=== PATIENT | male | born 2005 | race Caucasian/White ===

== ENCOUNTER 2025-02-16 07:47 | Emergency (ER) | payer SELFPAY ==
[2025-02-16 07:58] VITALS: BP 121/84
[2025-02-16 08:05] VITALS: BP 135/85
--- NOTE | 2025-02-16 08:13 | ED.GENMED ---
History of Present Illness
General
Chief Complaint: Cough
Source: patient
Exam Limitations: none
Time Seen by Provider: 02/16/25 08:01
Nursing documentation reviewed up to this point in time: agreed with
History of Present Illness
History of Present Illness:
pt is a 19 y/o M
no sig pmh
vapes nicotine
7 days URI
started with sore throat, nasal congestion, then dry cough; now occasionally brings up mucus
using tylenol cold and flu and topical spray for throat but doesn't feel like he is getting better
was 'coughing all morning.'
no ches tpain with cough, no sob, no fever, no leg swelling, no dvt/pe
unvaccinated flu/covid
Past History
Past History
ED Past Medical History: None
ED Past Surgical History: None
Social History
Tobacco: Vaping
Alcohol: Occasional
Drug: None
Personal: Single
Review of Systems
Review of Systems
Allergies reviewed?: Yes
All Other Systems: Not applicable
Phy Exam
Physical Exam
Physical Exam:
GENERAL: Alert , in no apparent distress
EYE: pupils equal and reactive
NECK: Supple
ENT: b/l TM s clear, pharynx erythematous no exudate, b/l 3+ tonsils, uvula midline; MERARI but nontender tonsillar
CARDIAC: Regular rate and rhythm, no edema
LUNGS: slight rhonchi, clears with cough, no wheezing, no tachypnea
ABDOMEN: Soft, without focal tenderness, no r/g, no cvat, normal bowel sounds
NEUROLOGICAL: Alert and oriented, no focal neuro deficits
SKIN: Warm and dry, skin intact.
MUSCULOSKELETAL: No edema, well perfused.
PSYCH: Normal and appropriate interaction.
Course
Orders/Labs/Results
Orders:
Orders
02/16/25 08:21
COVID-19 Antigen Urgent
Source: Nasal Swab
02/16/25 09:06
Dexamethasone [Decadron] 10 mg PO NOW STA
Ibuprofen [Motrin] 800 mg PO NOW STA
Vital Signs
Initial and Last Documented VS:
Initial Vital Signs
Temp Pulse Resp BP Pulse Ox
36.4 C 98 18 121/84 98
02/16/25 07:58 02/16/25 07:58 02/16/25 07:58 02/16/25 07:58 02/16/25 07:58
Last Documented Vital Signs
Temp Pulse Resp BP Pulse Ox
36.4 C 98 18 135/85 98
02/16/25 07:58 02/16/25 07:58 02/16/25 07:58 02/16/25 08:05 02/16/25 08:25
MDM/Problems Addressed
Differential Diagnosis Includes:
uri, asthmatic bronchitis, covid, pneumonia, less likely pertussis
MDM/Problems Addressed:
19 y/o M
vapes
here with 7 days URI sxs, sore throat, nasal congestion, and now cough
no sob, pleuritic pain, fever
coughing mostly dry
feels sore throat is still pretty sore
wanted to be sure 'nothing is killer'
pt well appearing
no resp distress
normal pulse ox
not tachy
lungs with mild rhonchi that clears with cough
no wheezing
offered CXR but declined because he has no insurance
test for covid
likely d'/c with decadron and z fernando
*Critical Care Note
Total Time (30-74mins, 75-104mins- exclusive of procedures): Not Applicable
ED Attending Note
-
Portions of this chart may have been created with voice recognition software.� Occasional wrong word or��sound alike� substitutions may have occurred due to the inherent limitations of voice recognition software.
Discharge Plan
Departure
Patient Disposition: Home (Routine Discharge)
Date of Disposition: 02/16/25
Time of Disposition: 09:07
Patient with high blood pressure during this ER visit?: No
Condition: Fair
Covid-19: Negative COVID-19
Discharge Problem:
Acute bronchitis
Instructions: Acute Bronchitis, Adult (DC), Viral Upper Respiratory Infection, Adult (DC)
Prescriptions:
New
azithromycin [Zithromax Z-Fernando] 250 mg tablet
250 mg PO DAILY 6 Days Qty: 6 0RF
Referrals:
NONE,* [Family Provider] -
Activity Restrictions/Additional Instructions:
YOUR SYPMTOMS ARE PROBABYL VIRAL
TRY THE OVER THE COUNTER MEDICATIONS FOR PAIN
(SPECIFICALLY MOTRIN FOR SORE THROAT)
YOU WERE GIVEN A DOSE OF STEROIDS HERE TO HELP WITH COUGH AND SORE THROAT SWELLING
WAIT 2 DAYS, IF YOUR COUGH IS NOT IMPROVING YOU CAN START THE ANTIBITOICS AND TAKE PRESCRBIED
RETURN FOR: SHORTNESS OF BREATH, SEVERE COUGH, FEVER, PAINFUL BREATHING OR ANY CONCERNS.
Interventions
Interventions:
*Risk Screen - Suicide Last Done: 02/16/25 07:58
*General Assessment Last Done: 02/16/25 07:58
*Neglect/Abuse Screening Last Done: 02/16/25 07:58
*ED- Fall Risk Assessment Last Done: 02/16/25 08:23
*ED COVID-19 Vaccine History Last Done: 02/16/25 08:23
ED- Pulmonary Assessment Last Done: 02/16/25 08:25
Discharge Date and Time
Print Language: MOROCCAN
[2025-02-16 08:24] VITALS: BMI 30.5
[2025-02-16 09:03] LABS: COVID-19 Antigen Negative (Negative)
[2025-02-16] MEDS: DECADRON 10 MG PO (09:11)
[2025-02-16] MEDS: MOTRIN 800 MG PO (09:11)
== END 2025-02-16 09:18 | disposition home or self-care (01) ==
LOC: EMR 07:47
PROVIDERS: Physician Assistant; EMERGENCY PHYSICIAN Emergency Medicine
DX: J20.9 Acute bronchitis, unspecified (principal); F17.290 Nicotine dependence, other tobacco product, uncomplicated; Z11.52 Encounter for screening for COVID-19
CPT/HCPCS: 99283; 87811